=== PATIENT | male | born 1990 | race Two or more races ===

== ENCOUNTER 2024-05-20 07:57 | Emergency (ER) | payer MEDICAID, SELFPAY ==
[2024-05-20 08:03] VITALS: PULSE 72; RESP 16; O2SAT 99; BMI 28.8
[2024-05-20 08:16] VITALS: BP 130/77; PULSE 63; RESP 16; TEMP 37.2; O2SAT 98
--- NOTE | 2024-05-20 08:19 | XR_ITS ---
Examination: Tibia-Fibula, left , 2 views Technique: Tibia-fibula AP lateral 2 views Date and time of exam: May 20, 2024 0824 hours INDICATIONS: Patient fell today with injury to the lower leg, lower leg pain. FINDINGS: Acute fracture distal fibular shaft. No significant displacement Tibia intact IMPRESSION: Acute fracture distal fibular shaft
--- NOTE | 2024-05-20 08:19 | XR_ITS ---
EXAMINATION: Ankle, left 3 views . Technique: Ankle AP, oblique, lateral 3 views Date and time of exam: May 20, 2024 0824 hours INDICATIONS: Patient fell today with injury ankle, ankle pain. FINDINGS: Acute fracture distal fibular shaft No significant displacement No ankle dislocation IMPRESSION: Acute fracture distal fibular shaft
--- NOTE | 2024-05-20 08:19 | XR_ITS ---
Examination: Foot, left, 3 views Technique: AP, oblique, lateral views foot, 3 views Date and time of exam: May 20, 2024 0824 hours INDICATIONS: Patient fell today with injury to foot, foot pain FINDINGS: No acute fracture No dislocation No foreign body IMPRESSION: No acute fracture Please see the ankle report for description fibular shaft fracture
[2024-05-20] MEDS: IBUPROFEN TAB 400 MG TABLET 800 MG PO (08:39)
--- NOTE | 2024-05-20 09:00 | EDNOTE_ITS ---
Lower Extremity Injury RME/HPI General Chief Complaint: Ankle/Foot Injury Stated Complaint: SLIP/FALL LAST NIGHT, INJURY LEFT ANKLE Time Seen by Provider: 05/20/24 08:04 Arrival date/time: 05/20/24 07:57 33-year-old male presents emergency department today stating he slipped and fell last night injuring his left ankle patient ports no head or neck injury no other injuries Limitations: no limitations Related Data Previous Rx's ?Medication ?Instructions ?Recorded hydrocodone 5 mg-acetaminophen 325 1 tab PO BID PRN pain #10 tabs 05/20/24 mg tablet ibuprofen 800 mg tablet 800 mg PO TID PRN pain #30 tabs 05/20/24 Allergies Allergy/AdvReac Type Severity Reaction Status Date / Time No Known Allergies Allergy Verified 05/20/24 08:05 Review of Systems Review of Systems Systems Reviewed: All systems reviewed, normal except as documented Constitutional Constitutional: Reports system reviewed and no additional complaints, except as documented, Denies fever(s) and Denies headache(s) Eyes Eyes: Reports system reviewed and no additional complaints, except as documented and Denies blurry vision ENT Ears, Nose, Mouth, and Throat: Reports system reviewed and no additional complaints, except as documented, Denies headache(s), Denies nasal congestion and Denies nasal discharge Cardiovascular Cardiovascular: Reports system reviewed and no additional complaints, except as documented, Denies chest pain and Denies dyspnea Respiratory Respiratory: Reports system reviewed and no additional complaints, except as documented, Denies chest congestion, Denies cough and Denies dyspnea Gastrointestinal Gastrointestinal: Reports system reviewed and no additional complaints, except as documented and Denies abdominal pain Musculoskeletal Musculoskeletal: Reports system reviewed and no additional complaints, except as documented, Reports abnormal gait, Reports arthralgias, Denies deformity, Reports joint swelling, Reports stiffness and Denies tingling Integumentary/Breasts Skin/Breast: Reports system reviewed and no additional complaints, except as documented and Denies rash Neurologic Neurologic: Reports system reviewed and no additional complaints, except as documented, Reports as per HPI, Reports abnormal gait, Denies headache(s) and Denies tingling Past Medical History Social History SMOKING STATUS: Heavy (> 1 pack/day) ED Exam General Limitations: Present no limitations General appearance: Present alert and in no apparent distress Head Head exam: Present atraumatic, normocephalic and normal inspection Eye Eye exam: Present normal appearance, PERRL, EOMI and conjunctival injection ENT ENT exam: Present normal exam, normal oropharynx and mucous membranes moist Neck Neck exam: Present normal inspection, full ROM and trachea midline Chest Chest inspection: Present normal inspection and symmetric chest wall rise Respiratory Respiratory exam: Present normal lung sounds bilaterally Cardiovascular Cardiovascular exam: Present regular rate, normal rhythm and normal heart sounds Abdominal Exam Abdominal exam: Present soft and normal bowel sounds Extremities Exam Extremities exam: Present normal inspection, full ROM, tenderness, normal capillary refill and joint swelling; Absent pedal edema or calf tenderness Back Exam Back exam: Present normal inspection and full ROM Neurological Exam Neurological exam: Present alert, oriented X3 and CN II-XII intact Psychiatric Psychiatric exam: Present normal affect and normal mood Skin Skin exam: Present warm, dry, intact and normal color Course Quality Measures none Orders Category Date Time Status Crutches .NOW Care 05/20/24 08:43 Completed Splint / Immobilizer STAT Care 05/20/24 08:43 Completed Consult to Orthopedic Stat Cons 05/20/24 08:44 Ordered XR ankle comp LT min 3V Stat Exams 05/20/24 08:19 Completed XR foot comp LT min 3V Stat Exams 05/20/24 08:19 Completed XR tibia fibula LT 2V Stat Exams 05/20/24 08:19 Completed Ibuprofen Tab [Motrin Tab] Med 05/20/24 08:19 Discontinued 800 mg PO X1 ONE Vital Signs Vital signs: Vital Signs Temperature 98.9 F 05/20/24 08:16 Pulse Rate 63 05/20/24 08:16 Respiratory Rate 16 05/20/24 08:16 Blood Pressure 130/77 05/20/24 08:16 Pulse Oximetry (%) 98 05/20/24 08:16 Oxygen Delivery Method Room Air 05/20/24 08:16 O2 saturation 98% room air within normal limits Procedures -ED Splint Fabrication: Clinician Made Type: Posterior Leg Reason for Splint: Optimal Positioning Circulation Distal to Splint: Yes Movement Distal to Splint: Yes Senation Distal to Splint: Yes Tolerance: Tolerates Well Extremity Injury, Lower MDM Narrative MDM Narrative:: 33-year-old male presents emergency department today stating he slipped and fell last night injuring his left ankle patient ports no head or neck injury no other injuries On exam patient has pain and swelling to left ankle pain worse with movement X-ray of left ankle and left foot obtained patient is a fracture distal fibula Consultation: I spoke with Dr. Kayli cox that see the patient as office 10:00 Patient placed in posterior short leg splint given pain medication and crutches Patient discharged home in no distress to follow-up with primary care doctor in the next 24 to 48 hours and for any worsening symptoms to return to the ER immediately Patient data External records reviewed:: [facility] previous records Clinical information provided by:: patient Social determinants that could affect healthcare access:: none Patient has the following chronic illnesses:: None How is presenting disease/condition affected by chronic disease/condition?: no chronic disease Evaluation data The following diagnostics were reviewed and interpreted by me:: radiology exam(s) Lab and/or radiology exams considered but not ordered:: Radiology obtain Interpretation Summary: Reviewed by me Medications / Prescriptions Medications or Prescriptions considered but not ordered:: Given Medication administrations:: Medication Administration History Discontinued Medications Ibuprofen (Ibuprofen Tab 400 Mg Tablet) 800 mg PO X1 ONE Stop: 05/20/24 08:20 Last Admin: 05/20/24 08:39 Dose: 800 mg Documented By: [facility] Given Consultations Consultation(s) initiated? (list below): Yes Consultation #1 (Physician, Specialty, Details): Dr Gonzales Diagnosis Extremity Injury, Lower Differential Diagnosis: ankle sprain and strain and ankle fracture Most likely diagnosis given after review of the tests above:: Ankle fracture Admission Indicated Admission indicated?: not indicated Admission Request Was there a request for admission?: No Disposition Plan Disposition Plan: Discharge Discharge Attestation Discharge Attestation: The patient and all family members were given an opportunity to ask questions and understood the discharge instructions. Discharge instructions specifically effects, indications for sooner follow up or return to the emergency department, and the expected course of current diagnosis. Patient condition: Stable Discharge Plan Plan Patient Disposition: HOME (Self Care) Disposition Comment: Stable Prescriptions/Referrals Prescriptions/Med Rec: New ibuprofen 800 mg tablet 800 mg PO TID PRN (Reason: pain) Qty: 30 0RF hydrocodone-acetaminophen 5-325 mg tablet 1 tab PO BID MDD 10 PRN (Reason: pain) Qty: 10 0RF Referrals: Blair Gonzales MD [Physician] - 05/22/24 10:00 am Problem List Clinical Impression: Fracture of distal end of fibula Patient/Caregiver Discharge Instructions Education Materials: [facility] [employer] [facility] Additional Instructions: Please follow-up with orthopedist as discussed for worsening symptoms return immediately Print Language: Maltese Stand Alone Forms: Letha Award Info., Work/School Release, Patient Portal Info Letter PA/STITCHER OPERATOR Supervising Physician PA/STITCHER OPERATOR Supervising Physician: Dr pryor
== END 2024-05-20 09:41 | disposition home or self-care (01) ==
PROVIDERS: Emergency Provider Emergency Medicine; PCP Family Medicine
DX: S82.832A Other fracture of upper and lower end of left fibula, initial encounter for closed fracture (principal); S99.922A Unspecified injury of left foot, initial encounter; W01.0XXA Fall on same level from slipping, tripping and stumbling without subsequent striking against object, initial encounter
CPT/HCPCS: 29515; 73590; 73610; 73630; 99283; A9270

== ENCOUNTER → 2024-06-04 | Outpatient (CLI) | payer MEDICAID, SELFPAY ==
--- NOTE | 2024-06-04 10:44 | XR_ITS ---
EXAMINATION: Ankle, left 3 views . Technique: Ankle AP, oblique, lateral 3 views Date and time of exam: June 04, 2024 1144 hours INDICATIONS: Injury to the ankle today, ankle pain. FINDINGS: Acute fracture distal fibular shaft No significant displacement No ankle dislocation IMPRESSION: Acute fracture distal fibular shaft without significant displacement
== END | disposition home or self-care (01) ==
PROVIDERS: PCP Family Medicine; Referring Provider Orthopaedic Surgery; Visit Provider Orthopaedic Surgery
DX: S82.402A Unspecified fracture of shaft of left fibula, initial encounter for closed fracture (principal); X58.XXXA Exposure to other specified factors, initial encounter
CPT/HCPCS: 73610

== ENCOUNTER → 2024-07-07 | Outpatient (CLI) | payer MEDICAID, SELFPAY ==
--- NOTE | 2024-07-07 09:39 | XR_ITS ---
EXAMINATION: Ankle, left 3 views . Technique: Ankle AP, oblique, lateral 3 views Date and time of exam: July 07, 2024 0854 hrs. Acute fracture distal fibular shaft June 04, 2024 Findings: Significant healing fracture distal fibular shaft with stable and satisfactory alignment Impression: Significant healing fracture distal fibular shaft with stable and satisfactory alignment
== END | disposition home or self-care (01) ==
PROVIDERS: PCP Family Medicine; Referring Provider Orthopaedic Surgery; Visit Provider Orthopaedic Surgery
DX: S82.492A Other fracture of shaft of left fibula, initial encounter for closed fracture (principal); X58.XXXA Exposure to other specified factors, initial encounter
CPT/HCPCS: 73610